=== PATIENT | male | born 1990 | race Caucasian/White ===

== ENCOUNTER 2016-08-09 12:40 | Emergency (ER) | payer SELFPAY ==
[~2016-08-09] VITALS: Ht 180.3 cm; Wt 146.2 kg
[~2016-08-09 12:40] MED LIST: ACET1TAB43 PO; AMOX875T2 PO; BACI28.32 EXT; BENZ200C43 PO; CIPR2.5D OU; CODE-54 PO; CRUT1EAC7 MC; DIPH25CA79 PO; FAMO40TA72 PO; HYDR-3702 PO; HYDR-3754 PO; IBP200T PO; METH4TAB27 PO; MPR22TI TOP; PRED20TA PO; SERT50TA2 PO; SULF-221 PO; SULF-228 PO; SULF1TAB35 PO; no meds
== END 2016-08-09 14:35 | disposition home or self-care (01) ==
LOC: ED 12:41
DX: L03.311 Cellulitis of abdominal wall (principal)
CPT/HCPCS: 99281; 99282